=== PATIENT | female | born 1975 | race Caucasian/White ===

== ENCOUNTER 2017-04-08 12:54 | Emergency (ER) | payer MEDICARE ==
[2017-04-08] MEDS ORDERED: FAMOTIDINE INJ/PF 20 MG/2 ML SDV IV ONE (13:10)
[2017-04-08] MEDS ORDERED: NORMAL SALINE 1000 ML 1,000 ML IV ONE (13:10)
--- NOTE | 2017-04-08 13:17 | ER Document Report ---
ED General - General Chief Complaint: Bee Sting Stated Complaint: POSSIBLE ALLERGIC REACTION Time Seen by Provider: 04/08/17 12:59 TRAVEL OUTSIDE OF THE [place] IN LAST 30 DAYS: No - HPI Notes: Patient comes to the ED by EMS c/o allergic reaction s/p bee sting x3 within the last 2 hours. Pt states that she did go to an urgent care and was given 125mg solumedrol IM. Pt states that she took 5 tabs of 25mg benadryl prior to the urgent care visit. Pt states that she was having trouble swallowing/ breathing at the time, but is feeling much better now. Pt states she has an allergy to epi (made swelling worse in the past). She has not been seen by an software recruiter since her last episode last year. Pt reports being stung to the posterior rt hand, lateral rt pectoralis area, and superior sternum simultaneously. Denies any fever, URI, sore throat, headache, current swelling of throat/mouth/lips/tongue, current trouble swallowing/dyspnea, sob, cough, wheeze, hoarseness, abd pain, n/v/d, muscle weakness/paralysis, discharge from sting sites, dysuria. - Related Data Allergies/Adverse Reactions: aspirin Allergy (Verified 04/04/16 18:19) epinephrine [From Epi E-Z Pen] Allergy (Verified 04/04/16 18:19) hydromorphone HCl [From Dilaudid] Allergy (Verified 04/04/16 18:19) Iodinated Contrast- Oral and IV Dye Allergy (Verified 04/04/16 18:19) morphine Allergy (Verified 04/04/16 18:19) Penicillins Allergy (Verified 04/04/16 18:19) venom-honey bee [bee venom (honey bee)] Allergy (Verified 04/04/16 18:19) Past Medical History - Social History Smoking Status: Unknown if Ever Smoked Family History: None Patient has suicidal ideation: No Patient has homicidal ideation: No Renal/ Medical History: Denies: Hx Peritoneal Dialysis Review of Systems - Review of Systems Notes: REVIEW OF SYSTEMS: CONSTITUTIONAL : Denies fever, chills, or sweats. Denies recent illness. EENT: see hpi CARDIOVASCULAR: Denies chest pain. Denies palpitations or racing or irregular heart beat. Denies ankle edema. RESPIRATORY: see hpi GASTROINTESTINAL: Denies abdominal pain or distention. Denies nausea, vomiting , or diarrhea. Denies blood in vomitus, stools, or per rectum. Denies black, tarry stools. Denies constipation. GENITOURINARY: Denies difficulty urinating, painful urination, burning, frequency, blood in urine, or discharge. MUSCULOSKELETAL: Denies back or neck pain or stiffness. Denies joint pain or swelling. SKIN: see hpi NEUROLOGICAL: Denies confusion or altered mental status. Denies passing out or loss of consciousness. Denies dizziness or lightheadedness. Denies headache. Denies weakness or paralysis or loss of use of either side. Denies problems with gait or speech. Denies sensory loss, numbness, or tingling. Denies seizures. ALL OTHER SYSTEMS REVIEWED AND NEGATIVE. Dictation was performed using [employer] voice recognition software Physical Exam - Vital signs Vitals: Resp Pulse Ox 4 L 99 04/08/17 12:59 04/08/17 12:59 Notes: PHYSICAL EXAMINATION: GENERAL: Well-appearing, well-nourished and in no acute respiratory distress. HEAD: Atraumatic, normocephalic. EYES: Pupils equal round and reactive to light, extraocular movements intact, sclera anicteric, conjunctiva are normal. ENT: EAC clear b/l. TM's intact b/l without erythema, fluid, or perforation. Nares patent and without discharge. oropharynx clear without exudates. No tonsilar hypertrophy or erythema. Moist mucous membranes. No sinus tenderness. No respiratory compromise or angioedema appreciated. NECK: Normal range of motion, supple without lymphadenopathy. No rigidity. LUNGS: Breath sounds clear to auscultation bilaterally and equal. No wheezes rales or rhonchi. HEART: Regular rate and rhythm without murmurs, rubs, gallops. ABDOMEN: Soft, nontender, nondistended abdomen. No guarding, no rebound. No masses appreciated. Normal bowel sounds present. No CVA tenderness bilaterally. Musculoskeletal: FROM to passive/active. Strength 5+/5. Extremities: No cyanosis, clubbing, or edema b/l. Peripheral pulses 2+. Capillary refill less than 3 seconds. NEUROLOGICAL: Normal speech, normal gait. Normal sensory, motor exams PSYCH: Normal mood, normal affect. SKIN: + erythema, mild inflammation noted to the posterior rt hand, lateral rt pectoralis area, and superior left sternum. No induration/streaks/discharge. + mild tenderness to palpation. A few small (1cm) hives are noted to the inferior neck. Resembles a histamine reaction and not cellulitis. Course - Re-evaluation Re-evalutation: 04/08/17 15:45 Pt is an afebrile, well-hydrated, 42yo female who presents with an acute allergic reaction s/p bee sting. PE unremarkable for airway compromise or worsening symptoms. An IV was started and Pepcid 20mg given IV along with 500mL NS. Pt has had plenty of benadryl (125mg PO) based on pt report as in HPI , and had received solumedrol from the urgent care just prior to arrival. Pt reports improvement in her symptoms and would like to go home. Low suspicion for any angioedema, respiratory compromise, or systemic infection at this time. I will send her home with a Rx for Pepcid 20mg PO and a steroid taper. Conservative measures for symptoms. Recheck with PCM for recheck in 1-2 days. Consider consult with software recruiter. Return to the ED with worsening symptoms. Pt in agreement. Dr. Reynoso eval'd patient with her hypotension. Pt usually runs low and is able to ambulate without any dizziness or difficulty. Dr. Reynoso did briefly eval the patient who is in agreement with stability for discharge. - Vital Signs Vital signs: Temp Pulse Resp BP Pulse Ox 97.9 F 12 97/68 L 98 04/08/17 13:00 04/08/17 15:31 04/08/17 15:31 04/08/17 15:31 Discharge - Discharge Clinical Impression: Allergy to bee sting Bee sting Qualifiers: Encounter type: initial encounter Injury intent: accidental or unintentional Qualified Code(s): T63.441A - Toxic effect of venom of bees, accidental ( unintentional), initial encounter Condition: Stable Disposition: HOME, SELF-CARE Additional Instructions: Maintain fluid intake Take benadryl as needed along with pepcid or zantac Ice will help on the sting areas May apply benadryl cream as well as needed Monitor symptoms closely Recheck with PCM in 1-2 days Consider consult with an [employer] Return to the ED with any worsening symptoms and/or development of fever, headache, swelling of mouth/lips/tongue/throat, trouble swallowing, chest pain, palpitations, syncope, shortness of breath, trouble breathing, abdominal pain, or other worsening symptoms that are concerning to you. Insect Sting You've been stung by an insect. The venom can cause pain, redness, and swelling. Right after the sting, we sometimes use adrenaline to reduce the reaction to the venom. This also stops any allergic reaction. You should apply cold compresses, rest and elevate the affected part, and take antihistamines. A more severe, itchy red swelling sometimes develops the next day. This is a local allergic reaction to the venom. This local allergy isn't dangerous. We treat it with cortisone-type medicine and antihistamines. Sometimes we use antibiotics if we're worried about infection. If you develop a fever, chills, a red streak, or swollen glands in the area of the bite, infection may be starting. Return at once. Insect stings from the bee and hornet family may cause a severe allergic reaction. Symptoms include hoarseness, shortness of breath, general redness of the skin, general itching, or lightheadedness. If any of these symptoms occur, you'll be treated with adrenalin and cortisone-like steroids. You should carry an "Anaphylaxis Kit" with you in the summer months so you can administer these medications to yourself before getting emergency medical care. Prescriptions: Famotidine [Pepcid 20 mg Tablet] 20 mg PO DAILY #7 tablet Prednisone [Deltasone 10 mg Tablet] 10 mg PO ASDIR PRN #21 tablet PRN Reason:
[2017-04-08 15:46] VITALS: BP 97/68
== END 2017-04-08 15:47 | disposition home or self-care (01) ==
LOC: ER 12:54
DX: T63.441A Toxic effect of venom of bees, accidental (unintentional), initial encounter (principal); R06.00 Dyspnea, unspecified; X58.XXXA Exposure to other specified factors, initial encounter; Z91.030 Bee allergy status; Z88.6 Allergy status to analgesic agent; Z88.0 Allergy status to penicillin
CPT/HCPCS: 99283; 96361; 96374; J7030; S0028